=== PATIENT | male | born 1950 | race Caucasian/White ===

== ENCOUNTER → 2019-05-02 | Day surgery (SDC) | payer MEDICARE ==
[2019-04-25 16:51] LABS: BASOPHILS # (AUTO) 0.1 (0.0-0.1); BASOPHILS % 0.7 % (0.0-1.0); EOSINOPHILS # (AUTO) 0.3 (0.0-0.4); EOSINOPHILS % 3.4 % (0.0-6.0); HEMATOCRIT 44.3 % (38.2-49.6); HEMOGLOBIN 15.4 g/dL (14.0-18.0); LYMPHOCYTES # (AUTO) 1.9 (1.0-3.2); LYMPHOCYTES % 25.4 % (18.0-39.1); MEAN CORPUSCULAR HEMOGLOBIN 31.3 pg (28-32); MEAN CORPUSCULAR HGB CONC 34.8 g/dL (31-35); MONOCYTES # (AUTO) 0.6 (0.2-0.8); MONOCYTES % 8.6 % (4.4-11.3); NEUTROPHILS # (AUTO) 4.6 (2.1-6.9); NEUTROPHILS % 61.5 % (38.7-80.0); PLATELET COUNT 197 x10e3/uL (140-360); RED BLOOD COUNT 4.92 x10e6/uL (4.3-5.7); RED CELL DISTRIBUTION WIDTH 12.8 % (11.7-14.4)
[~2019-05-02] MED LIST: ATORVASTATIN CA20 MG PO; AUGMENTIN PO; BENEFIBER240 GM PO; COQ-10 PO; ELIQUIS PO; EPHEDRINE SULFATE INJ 50 MG/10 ML SYR ONE; FENTANYL CITRATE/PF 100MCG/2 ML INJ ONE; FISH OIL PO; GLUCAGON FOR INJ 1 MG VIAL ONE; GLUCOSAMIN PO; GLUCOSAMINE &1 EAC1 PO; GRAPE SEED PO; HYOSCYAMINE 0.125 MG TAB ONE; IBUPROFEN400 MG PO; JOINT PO; METOPROLOL SUCC50 MG PO; MIDAZOLAM HCL 2 MG/2 ML VIAL ONE; MULTIVITAMIN PO; NAPROXEN250 MG PO; NORCO 7.5-3251 EACH PO; PROPOFOL IV EMULSION 10 MG/ML 50 ML VIAL ONE; TRAMADOL-ACETAMI1 EA PO; TRIBENZOR 20-51 EACH PO; TRIBENZOR 40-11 EAC1 PO; ULTRAM50 MG PO; XARELTO10 MG PO
--- OUTSIDE RECORDS SUMMARY | 2019-05-02 10:59 | XMS REPORT | Continuity of Care Document ---
Author Author mGenerator Address Unknown Phone Unavailable Care Team Providers Care Ribber Name Role Phone [employer] Unavailable Unavailable Problems Problem Status Onset Date Classification Date Reported Comments Source Bilateral edema of lower extremity Active Problem 06/27/2017 Mohjosue Jacobo Angina pectoris, unspecified Active Problem 06/27/2017 Mohjosue Jacobo Dyspnea on exertion Active Problem 06/27/2017 Mohamed Gerardo Jacobo Nonrheumatic tricuspid insufficiency Active Problem 06/27/2017 Mohamed Gerardo Jacobo Paroxysmal atrial fibrillation Active Problem 06/27/2017 Florentino Jacobo Non-rheumatic mitral regurgitation Active Problem 06/27/2017 Florentino Jacobo Abnormal EKG Active Problem 06/27/2017 Florentino Jacobo Essential hypertension Active Problem 06/27/2017 Mohamed Gerardo Jacobo Atrial fibrillation status post cardioversion Active Problem 06/27/2017 Mohamed Gerardo Jacobo Chronic atrial fibrillation Active Problem 06/27/2017 Florentino Jacobo Morbid obesity due to excess calories Active Problem 06/27/2017 Mohamed Gerardo Jacobo Venous insufficiency Active Problem 06/27/2017 Mohamed Gerardo Jacobo Primary osteoarthritis involving multiple joints Active Problem 06/27/2017 Florentino Jacobo Medications Medication Details Route Status Patient Instructions Ordering Provider Order Date Source Toprol XL 1 tablet PO Active 50 mg PO daily Jeroudi 07/15/2017 Mohamed Gerardo Jacobo Toprol XL 1 tablet PO Active 50 mg PO daily Jeroudi Florentino Jacobo Allergies, Adverse Reactions, Alerts No Known Medication Allergies Immunizations No Data Provided for This Section Results No Data Provided for This Section Pathology Reports No Data Provided for This Section Diagnostic Reports No Data Provided for This Section Consultation Notes No Data Provided for This Section Discharge Summaries No Data Provided for This Section History and Physicals No Data Provided for This Section Vital Signs No Data Provided for This Section Encounters No Data Provided for This Section Procedures No Data Provided for This Section Assessment and Plan No Data Provided for This Section Plan of Care No Data Provided for This Section Social History No Data Provided for This Section Family History No Data Provided for This Section Advance Directives No Data Provided for This Section Functional Status No Data Provided for This Section
--- OUTSIDE RECORDS SUMMARY | 2019-05-02 10:59 | XMS REPORT ---
Author Author Emma Jacobo Organization [employer] Address Unknown Phone Unavailable Care Team Providers Care C 13 Catapult Operator Name Role Phone Emam Jacobo CP Unavailable Allergies No Known Allergies Problems Problem Type Condition Code Onset Dates Condition Status Problem Bilateral edema of lower extremity R60.0 Active Problem Angina pectoris, unspecified I20.9 Active Problem Dyspnea on exertion R06.09 Active Problem Nonrheumatic tricuspid (valve) insufficiency I36.1 Active Problem Paroxysmal atrial fibrillation I48.0 Active Problem Non-rheumatic mitral regurgitation I34.0 Active Problem Abnormal EKG R94.31 Active Problem Essential (primary) hypertension I10 Active Problem Atrial fibrillation status post cardioversion I48.91 Active Problem Chronic atrial fibrillation I48.2 Active Assessment Paroxysmal atrial fibrillation I48.0 Active Problem Morbid obesity due to excess calories E66.01 Active Problem Venous insufficiency I87.2 Active Problem Primary osteoarthritis involving multiple joints M15.0 Active Medications Medication Code System Code Instructions Start Date End Date Status Dosage Toprol XL [facility] [address]-82 50 mg PO daily Active 1 tablet Results No Known Results Summary Purpose [employer] Submission
--- OUTSIDE RECORDS SUMMARY | 2019-05-02 10:59 | XMS REPORT ---
Author Author Emma Jacobo Organization [employer] Address Unknown Phone Unavailable Care Team Providers Care Centerless Grinder Tender Name Role Phone Emma Jacobo CP Unavailable Allergies No Known Allergies Problems Problem Type Condition Code Onset Dates Condition Status Problem Venous insufficiency I87.2 Active Problem Bilateral edema of lower extremity R60.0 Active Problem Primary osteoarthritis involving multiple joints M15.0 Active Problem Morbid obesity due to excess calories E66.01 Active Problem Atrial fibrillation status post cardioversion I48.91 Active Problem Chronic atrial fibrillation I48.2 Active Problem Paroxysmal atrial fibrillation I48.0 Active Problem Angina pectoris, unspecified I20.9 Active Problem Dyspnea on exertion R06.09 Active Problem Abnormal EKG R94.31 Active Problem Essential (primary) hypertension I10 Active Medications Medication Code System Code Instructions Start Date End Date Status Dosage Toprol XL [facility] [address]-28 50 mg PO daily Active 1 tablet Results No Known Results Summary Purpose [employer] Submission
--- OUTSIDE RECORDS SUMMARY | 2019-05-02 10:59 | XMS REPORT ---
Author Author Emma Jacobo Organization [employer] Address Unknown Phone Unavailable Care Team Providers Care Fiberglass Machine Operator Name Role Phone Emma Jacobo CP Unavailable [...] Date End Date Status Dosage Toprol XL [facility] [address]-98 50 mg PO daily Jul 15, 2017 Active 1 tablet Results No Known Results Summary Purpose [employer] Submission
--- OUTSIDE RECORDS SUMMARY | 2019-05-02 10:59 | XMS REPORT ---
Author Author Emma Jacobo Organization [employer] Address Unknown Phone Unavailable Care Team Providers Care Model Set Artist Name Role Phone Emma Jacobo CP Unavailable [...] Problem Chronic atrial fibrillation I48.2 Active Problem Morbid obesity due to excess calories E66.01 Active Problem Venous insufficiency I87.2 Active Problem Primary osteoarthritis involving multiple joints M15.0 Active Medications No Known Medications Results No Known Results Summary Purpose [employer] Submission
--- OUTSIDE RECORDS SUMMARY | 2019-05-02 10:59 | XMS REPORT ---
Author Author [facility] Address Unknown Phone Unavailable Care Team Providers Care Marketing Operations Manager Name Role Phone Unavailable Unavailable Payers Payer Name Policy Type Policy Number Effective Date Expiration Date Problems This patient has no known problems. Allergies, Adverse Reactions, Alerts Allergy Name Allergy Type Status Severity Reaction(s) Onset Date Inactive Date Treating Clinician Comments No Known Allergies DA Active U 2018-07-23 00:00:00 No Known Allergies DA Active U 2011-04-20 00:00:00 Medications This patient has no known medications.
[2019-05-02 14:12] VITALS: BP 110/65
--- NOTE | 2019-05-02 21:09 | Operative Report ---
DATE OF PROCEDURE: 05/02/2019 SURGEON: Brando Whitaker MD PROCEDURE: Colonoscopy with polypectomy note. INDICATION FOR COLONOSCOPY: Surveillance colonoscopy, personal history of colon polyps. MEDICATIONS: The patient was done under MAC, please see anesthesiologist's note. PROCEDURE IN DETAIL: With the patient in left lateral decubitus position, a flexible fiberoptic Olympus colonoscope was inserted into the rectum with ease and advanced all the way to the cecum. The overall prep was suboptimal with some retained stools in the colon, but visualization was fair. The scope was then withdrawn slowly whatever was visualized the mucosa overlying the cecum, ascending colon, transverse colon appeared to be within normal limits. One polyp was snared from the descending colon. Diverticular disease was noted in the sigmoid colon. Two polyps were snared from the sigmoid colon. The rectum appeared to be within normal limits. The scope was then retroflexed into the distal rectum and moderate-sized internal hemorrhoids were noted, none of which was actively bleeding. The scope was then straightened out, it was subsequently withdrawn, and the patient tolerated the procedure well. IMPRESSION: 1. Suboptimal prep. 2. Descending colon polyp snared. 3. Diverticulosis. 4. Sigmoid colon polyps x2, snared. 5. Internal hemorrhoids, none actively bleeding. PLAN: Follow up histology. Initiate high-fiber, low-fat diet. Initiate high-fiber supplement. The patient might benefit from a followup colonoscopy in 2 to 3 years. Brando Whitaker MD [facility] [place] /[id number] cc: Fernie Whitaker MD
== END | disposition home or self-care (01) ==
LOC: OR 10:41
PROVIDERS: ATTEND Internal Medicine Gastroenterology
DX: K57.30 Diverticulosis of large intestine without perforation or abscess without bleeding (principal); G47.33 Obstructive sleep apnea (adult) (pediatric); F41.9 Anxiety disorder, unspecified; I48.91 Unspecified atrial fibrillation; I10 Essential (primary) hypertension; E11.9 Type 2 diabetes mellitus without complications; Z79.01 Long term (current) use of anticoagulants; K63.5 Polyp of colon; K64.8 Other hemorrhoids; D12.5 Benign neoplasm of sigmoid colon; Z68.35 Body mass index [BMI] 35.0-35.9, adult; M19.90 Unspecified osteoarthritis, unspecified site; Z96.653 Presence of artificial knee joint, bilateral
CPT/HCPCS: 36415 ×2; 45385; 82948; 85025; 88305; 93005; J1610; J2250; J2704; J3010; 45378; 45384

== ENCOUNTER 2025-03-09 20:26 | Emergency (ER) | payer MEDICARE ==
[~2025-03-09] VITALS: Ht 190.5 cm; Wt 105.7 kg
[~2025-03-09 20:26] MED LIST changes: -EPHEDRINE SULFATE INJ 50 MG/10 ML SYR ONE; -FENTANYL CITRATE/PF 100MCG/2 ML INJ ONE; -GLUCAGON FOR INJ 1 MG VIAL ONE; -HYOSCYAMINE 0.125 MG TAB ONE; -MIDAZOLAM HCL 2 MG/2 ML VIAL ONE; -PROPOFOL IV EMULSION 10 MG/ML 50 ML VIAL ONE
[2025-03-09 21:45] VITALS: TEMP 99
[2025-03-09 21:52] LABS: BASOPHILS % 0.4 % (0.0-1.0); EOSINOPHILS # (AUTO) 0.1 (0.0-0.4); EOSINOPHILS % 0.7 % (0.0-6.0); HEMATOCRIT 43.4 % (38.2-49.6); HEMOGLOBIN 14.6 g/dL (14.0-18.0); LYMPHOCYTES % 9.4 % (18.0-39.1); MEAN CORPUSCULAR HEMOGLOBIN 30.2 pg (28-32); MEAN CORPUSCULAR HGB CONC 33.6 g/dL (31-35); MEAN CORPUSCULAR VOLUME 89.9 fL (81-99); MONOCYTES # (AUTO) 0.7 (0.2-0.8); MONOCYTES % 6.8 % (4.4-11.3); NEUTROPHILS # (AUTO) 8.4 (2.1-6.9); NEUTROPHILS % 82.4 % (38.7-80.0); PLATELET COUNT 194 x10e3/uL (140-360); RED BLOOD COUNT 4.83 x10e6/uL (4.3-5.7); RED CELL DISTRIBUTION WIDTH 12.4 % (11.7-14.4); WHITE BLOOD COUNT 10.16 x10e3/uL (4.8-10.8)
[2025-03-09 22:06] LABS: ALANINE AMINOTRANSFERASE 10 IU/L (0-55); ALBUMIN 3.4 g/dL (3.5-5.0); ALKALINE PHOSPHATASE 90 IU/L (40-150); ANION GAP 14.8 mmol/L (8-16); BILIRUBIN,TOTAL 0.5 mg/dL (0.2-1.2); BLOOD UREA NITROGEN 13 mg/dL (7-26); BUN/CREATININE RATIO 15 (6-25); CALCIUM 9.2 mg/dL (8.4-10.2); CARBON DIOXIDE 26 mmol/L (22-29); CHLORIDE 102 mmol/L (98-107); CREATINE KINASE 16 IU/L (30-200); CREATININE, SERUM 0.88 mg/dL (0.72-1.25); EST GLOMERULAR FILTRATION RATE 91 ML/MIN (>=60); GLUCOSE 178 mg/dL (74-118); POTASSIUM 3.8 mmol/L (3.5-5.1); SODIUM 139 mmol/L (136-145); TOTAL PROTEIN 6.8 g/dL (6.5-8.1)
[2025-03-09 22:10] LABS: INR 0.95; PROTHROMBIN TIME 13.5 seconds (11.9-14.5)
[2025-03-09 22:23] LABS: TROPONIN I < 0.05 ng/mL (0.0-0.40)
[2025-03-09] MEDS: ACETAMINOPHEN 325 MG TAB PO ONE (23:07)
[2025-03-09] MEDS: Vancomycin IV 1 GM in SODIUM CHLORIDE 0.9% 250ML 250 ML IV ONE (23:08)
[2025-03-09] MEDS: SODIUM CHLORIDE 0.9% 1000ML 1,000 ML IV ONE (23:08)
[2025-03-09] MEDS ORDERED: INDOMETHACIN50 MG PO (23:23)
[2025-03-09] MEDS ORDERED: DOXYCYCLINE HY100 MG PO (23:23)
[2025-03-10] VITALS: PULSE 103; RESP 15
[2025-03-10 00:55] VITALS: BP 152/94; PULSE 96; RESP 14; TEMP 97.3; O2SAT 96
== END 2025-03-10 00:30 | disposition home or self-care (01) ==
LOC: ER 21:40
DX: M25.531 Pain in right wrist (principal); M10.031 Idiopathic gout, right wrist; I48.20 Chronic atrial fibrillation, unspecified; I10 Essential (primary) hypertension; E11.65 Type 2 diabetes mellitus with hyperglycemia; R94.31 Abnormal electrocardiogram [ECG] [EKG]; I69.354 Hemiplegia and hemiparesis following cerebral infarction affecting left non-dominant side
CPT/HCPCS: 36415; 71045; 73110; 73130; 80053; 82550; 83605; 84484; 85025; 85610; 85730; 87040; 93005; 99284; J2543; J3370; J7030; J7050